=== PATIENT | female | born 1965 | race Caucasian/White ===

== ENCOUNTER 2017-10-02 16:22 | Emergency (ER) | payer MEDICAID ==
[~2017-10-02] VITALS: Ht 180.3 cm; Wt 103.4 kg
[~2017-10-02 16:22] MED LIST: CITA20TA19 PO; DIAZ10TA4 PO; HYDR-3026 PO; HYDR-548 PO; LEVO25TA2 PO; LISI-603 PO; OXCA300T PO
[2017-10-02] MEDS ORDERED: ESCITALOPRAM TAB 20MG PO (16:41)
[2017-10-02] MEDS ORDERED: LOSARTAN POT PO (16:41)
[2017-10-02] MEDS ORDERED: ATENOLOL 25 MG PO (16:41)
[2017-10-02] MEDS ORDERED: JANUVIA 100 MG PO (16:41)
[2017-10-02] MEDS ORDERED: DIAZEPAM TAB 5MG (16:41)
[2017-10-02] MEDS ORDERED: ATORVASTATIN TAB 20MG PO (16:42)
--- NOTE | 2017-10-02 17:13 | NUR ---
PT WAS EVALUATED BY DR SALINAS. PT WAS D/C TO HOME. D/C INSTRUCTIONS GIVEN TO THE PT.
[2017-10-02 17:16] VITALS: BP 136/88
== END 2017-10-02 17:23 | disposition home or self-care (01) ==
LOC: ER 16:25
DX: Z76.0 Encounter for issue of repeat prescription (principal); I10 Essential (primary) hypertension; E03.9 Hypothyroidism, unspecified; Z79.899 Other long term (current) drug therapy; Z79.891 Long term (current) use of opiate analgesic
CPT/HCPCS: 99283; A4663

== ENCOUNTER 2018-03-05 16:06 | Emergency (ER) | payer MEDICAID ==
[~2018-03-05] VITALS: Ht 180.3 cm; Wt 97.1 kg
[~2018-03-05 16:06] MED LIST changes: +ATENOLOL 25 MG PO; +ATORVASTATIN TAB 20MG PO; -CITA20TA19 PO; +DIAZEPAM TAB 5MG; +ESCITALOPRAM TAB 20MG PO; -HYDR-3026 PO; +HYDR-4354 PO; -HYDR-548 PO; +JANUVIA 100 MG PO; -LISI-603 PO; +LOSARTAN POT PO; -OXCA300T PO
--- NOTE | 2018-03-05 17:25 | NUR ---
PATIENT WAS SEEN BY . HÉCTOR, RX (INCLUDING PRECAUTIONS) AND FOLLOW UP INSTRUCTIONS GIVEN AND EXPLAINED TO PATIENT WHO STATES SHE UNDERSTANDS ALL INSTRUCTIONS... PATIENT STATES SHE DOES NOT DRIVE AND UNDERSTANDS ALL RISKS OF XANAX AND NORCO.
== END 2018-03-05 17:26 | disposition home or self-care (01) ==
LOC: ER 16:08
DX: E11.40 Type 2 diabetes mellitus with diabetic neuropathy, unspecified (principal); F41.9 Anxiety disorder, unspecified; I10 Essential (primary) hypertension; E03.9 Hypothyroidism, unspecified
CPT/HCPCS: A4663

== ENCOUNTER 2018-07-25 18:15 | Emergency (ER) | payer MEDICAID ==
[~2018-07-25] VITALS: Ht 180.3 cm; Wt 98.0 kg
[~2018-07-25 18:15] MED LIST changes: -ATORVASTATIN TAB 20MG PO; -DIAZEPAM TAB 5MG
[2018-07-25 18:41] LABS: *BILIRUBIN,URIN NEGATIVE (NEGATIVE); *BLOOD, URINE NEGATIVE (NEGATIVE); *CLARITY,URINE CLEAR (CLEAR); *COLOR,URINE YELLOW (YELLOW); *KETONES,URINE NEGATIVE (NEGATIVE); *UROBILINOGEN,URINE 0.2 E.U./dl (NORMAL); LEUKOCYTE ESTERASE ,URINE 1+ (NEGATIVE); NITRITE, URINE NEGATIVE (NEGATIVE); UGLUCOSE NEGATIVE (NEGATIVE)
[2018-07-25 18:42] LABS: *URINE HCG, QUAL NEGATIVE (NEGATIVE)
[2018-07-25 18:45] LABS: RBC,URINE NONE SEEN /HPF (0-3); SQUAMOUS EPITHELIAL CELL,UR FEW /HPF (NONE SEEN)
[2018-07-25 18:46] LABS: BACTERIA,URINE MODERATE /HPF (NONE SEEN)
--- NOTE | 2018-07-25 19:37 | NUR ---
Patient discharged to home in stable conditon. Written and verbal after care instructions given. Patient verbalizes understanding of instructions. Patient ambulated with stable gait.
[2018-07-25 19:41] VITALS: BP 138/78
== END 2018-07-25 19:41 | disposition home or self-care (01) ==
LOC: ER 18:15
DX: E11.40 Type 2 diabetes mellitus with diabetic neuropathy, unspecified (principal); M54.5 Low back pain; R30.0 Dysuria; I10 Essential (primary) hypertension; E03.9 Hypothyroidism, unspecified; Z79.899 Other long term (current) drug therapy
CPT/HCPCS: 84703; 87077; 87086; A4663

== ENCOUNTER 2018-12-13 15:10 | Emergency (ER) | payer MEDICAID ==
[~2018-12-13] VITALS: Ht 180.3 cm; Wt 99.8 kg
[~2018-12-13 15:10] MED LIST changes: -DIAZ10TA4 PO; -HYDR-4354 PO
[2018-12-13] MEDS ORDERED: LORA-259 PO (16:07)
[2018-12-13] MEDS ORDERED: ATOR20TA PO (16:07)
[2018-12-13] MEDS ORDERED: ESCI20TA PO (16:07)
[2018-12-13] MEDS ORDERED: TDAP DIPH,PERTUSS,TET VAC/PF 0.5 ML DISP.SYRIN IM ONE (17:11)
[2018-12-13] MEDS: TDAP DIPH,PERTUSS,TET VAC/PF 0.5 ML DISP.SYRIN IM ONE (17:12)
[2018-12-13 18:05] VITALS: BP 111/60
--- NOTE | 2018-12-13 18:05 | NUR ---
Patient discharged to home in stable conditon. Written and verbal after care instructions given. Patient verbalizes understanding of instructions.pt walks i nsteady gait. no sign of distress.
== END 2018-12-13 18:07 | disposition home or self-care (01) ==
LOC: ER 15:10
DX: S83.91XA Sprain of unspecified site of right knee, initial encounter (principal); M25.511 Pain in right shoulder; M79.601 Pain in right arm; M54.5 Low back pain; R51 Headache; R42 Dizziness and giddiness; I10 Essential (primary) hypertension; E11.9 Type 2 diabetes mellitus without complications; E03.9 Hypothyroidism, unspecified; F41.9 Anxiety disorder, unspecified; E78.00 Pure hypercholesterolemia, unspecified; Z79.899 Other long term (current) drug therapy; W01.0XXA Fall on same level from slipping, tripping and stumbling without subsequent striking against object, initial encounter; Y93.89 Activity, other specified; Y92.89 Other specified places as the place of occurrence of the external cause; Y99.8 Other external cause status
CPT/HCPCS: 90715; 93005; A4663

== ENCOUNTER 2018-12-22 17:11 | Emergency (ER) | payer MEDICAID ==
[~2018-12-22] VITALS: Ht 177.8 cm; Wt 99.8 kg
[~2018-12-22 17:11] MED LIST changes: +ATOR20TA PO; +ESCI20TA PO; -ESCITALOPRAM TAB 20MG PO; +LORA-259 PO
--- NOTE | 2018-12-22 18:02 | NUR ---
Patient discharged to home in stable conditon. Written and verbal after care instructions given. Patient verbalizes understanding of instructions.
== END 2018-12-22 18:04 | disposition home or self-care (01) ==
LOC: ER 17:12
DX: F41.9 Anxiety disorder, unspecified (principal); I10 Essential (primary) hypertension; E11.9 Type 2 diabetes mellitus without complications; F31.9 Bipolar disorder, unspecified; E03.9 Hypothyroidism, unspecified; E78.00 Pure hypercholesterolemia, unspecified; Z79.899 Other long term (current) drug therapy
CPT/HCPCS: A4663

== ENCOUNTER 2019-01-02 10:44 | Emergency (ER) | payer MEDICAID ==
[~2019-01-02] VITALS: Ht 180.3 cm; Wt 99.8 kg
[2019-01-02] MEDS: SULFAMETH/TRIMETH 800/160 MG TABLET PO ONE (11:20)
[2019-01-02] MEDS ORDERED: SULFAMETH/TRIMETH 800/160 MG TABLET ONE (11:23)
--- NOTE | 2019-01-02 11:24 | NUR ---
Patient discharged to home in stable conditon. Written and verbal after care instructions given. Patient verbalizes understanding of instructions.
== END 2019-01-02 11:26 | disposition home or self-care (01) ==
LOC: ER 10:45
DX: S40.861A Insect bite (nonvenomous) of right upper arm, initial encounter (principal); L08.9 Local infection of the skin and subcutaneous tissue, unspecified; L03.113 Cellulitis of right upper limb; I10 Essential (primary) hypertension; E11.9 Type 2 diabetes mellitus without complications; F41.9 Anxiety disorder, unspecified; F31.9 Bipolar disorder, unspecified; E03.9 Hypothyroidism, unspecified; E78.00 Pure hypercholesterolemia, unspecified; Z79.899 Other long term (current) drug therapy; W57.XXXA Bitten or stung by nonvenomous insect and other nonvenomous arthropods, initial encounter; Y93.89 Activity, other specified; Y92.89 Other specified places as the place of occurrence of the external cause; Y99.8 Other external cause status
CPT/HCPCS: A4663

== ENCOUNTER 2019-03-05 22:03 | Emergency (ER) | payer MEDICAID ==
[~2019-03-05] VITALS: Ht 185.4 cm; Wt 98.4 kg
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
--- NOTE | 2019-03-05 22:16 | NUR ---
PT ABLE TO TOLERATE 60ML OF JUICE
[2019-03-05] MEDS ORDERED: LORAZEPAM 0.5 MG TABLET ONE (22:39)
[2019-03-05] MEDS: LORAZEPAM 0.5 MG TABLET PO ONE (22:43)
[2019-03-05 22:50] LABS: WHITE BLOOD COUNT (AUTO) 12.3 K/UL (4.0-11.2)
[2019-03-05 22:51] LABS: HEMATOCRIT 42.2 % (37-47); HEMOGLOBIN 14.1 G/DL (12.0-16.0); MEAN CORPUSCULAR HEMOGLOBIN 30.6 UUG (27.0-31.0); MEAN CORPUSCULAR HGB CONC 33 g/dL (32.0-37.0); MEAN CORPUSCULAR VOLUME 91.9 FL (81.0-99.0); NEUTROPHILS % (AUTO) 49.3 % (38.5-71.5); PLATELET COUNT (AUTO) 254 K/UL (150-450)
[2019-03-05 22:52] LABS: MONOCYTES % (AUTO) 5.1 % (0.0-11.0)
[2019-03-05 22:53] LABS: BASOPHILS # (AUTO) 0.1 K/uL (0.0-8.0); BASOPHILS % (AUTO) 0.6 % (0.0-2.0); EOSINOPHILS # (AUTO) 0.1 K/uL (0.0-0.7); LYMPHOCYTES # (AUTO) 5.4 K/UL (0.8-4.8); MONOCYTES # (AUTO) 0.6 K/UL (0.1-1.30)
[2019-03-05 23:18] LABS: POTASSIUM 3.1 mmol/L (3.5-5.1)
[2019-03-05 23:19] LABS: BILIRUBIN,TOTAL 0.6 mg/dL (0.1-1.0); CARBON DIOXIDE 27 mmol/L (21-32); CHLORIDE 103 mmol/L (98-107); CREATININE 1.2 mg/dL (0.6-1.3); GLUCOSE 145 mg/dL (74-106); UREA NITROGEN, BLOOD 16 mg/dL (7-20)
[2019-03-05 23:20] LABS: ACETAMINOPHEN < 2.0 ug/mL (10-30); ALANINE AMINOTRANSFERASE 20 U/L (14-59); ALKALINE PHOSPHATASE 77 U/L (50-136); ASPARTATE AMINOTRANSFERASE 15 U/L (15-37); BILIRUBIN,DIRECT 0.1 mg/dL (0.0-0.2); THYROID STIMULATING HORMONE 3.648 mIU/mL (0.358-3.740); TOTAL PROTEIN, SERUM 7.9 g/dL (6.4-8.2)
[2019-03-05 23:25] LABS: ETHANOL < 3 MG/DL (0-0)
--- NOTE | 2019-03-05 23:35 | NUR ---
PT ABLE TO PROVIDE URINE. KEPT CALM ,AND COMFORTABLE ASLEEP BUT EASILY ROUSED NAD
[2019-03-06 00:12] LABS: *CLARITY,URINE HAZY (CLEAR); *COLOR,URINE STRAW (YELLOW); PH,URINE 5.5 (5.0-8.0)
[2019-03-06 00:13] LABS: *BILIRUBIN,URIN M (NEGATIVE); *BLOOD, URINE NEGATIVE (NEGATIVE); *KETONES,URINE NEGATIVE (NEGATIVE); *URINE HCG, QUAL NEGATIVE (NEGATIVE); *UROBILINOGEN,URINE 0.2 E.U./dl (NORMAL); LEUKOCYTE ESTERASE ,URINE 1+ (NEGATIVE); NITRITE, URINE NEGATIVE (NEGATIVE); UGLUCOSE NEGATIVE (NEGATIVE)
[2019-03-06 00:21] LABS: BACTERIA,URINE FEW /HPF (NONE SEEN); RBC,URINE 0-3 /HPF (0-3)
[2019-03-06 00:22] LABS: SQUAMOUS EPITHELIAL CELL,UR MODERATE /HPF (NONE SEEN)
[2019-03-06 00:53] LABS: *AMPHETAMINE, URINE POSITIVE (NEGATIVE); *BARBITURATE, URINE NEGATIVE (NEGATIVE); *CANNABINOID, URINE NEGATIVE (NEGATIVE); *COCCAINE, URINE NEGATIVE (NEGATIVE); *OPIATE, URINE NEGATIVE (NEGATIVE); *PHENCYCLIDINE SCREEN,URINE NEGATIVE (NEGATIVE)
--- NOTE | 2019-03-06 00:56 | NUR ---
[facility] (UBALDO) [phone] CALLED. PT STATES SHE AGREES WITH VOLUNTARY ADMISSION TO [facility] [phone]
--- NOTE | 2019-03-06 01:03 | NUR ---
[facility] ON THE PHONE (JOHNNIE) CALL BACK NUMBER [phone] FAX NUMBER [phone] JOHNNIE STATES: THERE ARE NO AVAILABLE BEDS AT THIS TIME. PLEASE CALL BACK AT 7A FOR WARM HAND OFF AND TO SEE IF THERE ARE ANY BEDS AVAILABLE. PLEASE FAX PT CLINICALS AT 0830A POSSIBLE BED OPENINGS AT 9A/10A ERMD AWARE PT ASLEEP, BUT EASILY ROUSED NAD MONITORED ACCORDINGLY
--- NOTE | 2019-03-06 06:05 | NUR ---
PT ASLEEP BUT EASILY ROUSED MONITORED ACCORDINGLY STILL PENDING BED AVAILABILITY FROM [facility]
--- NOTE | 2019-03-06 06:40 | NUR ---
PT ABLE TO AMBULATE TOWARDS RESTROOM ASKED FOR PHONE Addendum: 03/06/19 at 0643 by LAMONT 1ON1 SITTER AT BEDSIDE CURRENTLY STATES FEELING HELPLESS AND STILL WITH SI BUT WITHOUT PLAN STILL WAITIING FOR BED AVAILABILITY FOR VOLUNTARY ADMISSION TO [facility]
--- NOTE | 2019-03-06 06:59 | NUR ---
HAND OFF AND SBAR GIVEN TO INCOMING DAY SHIFT RN (JAIMEI) FAXED CLINICALS TO [facility] CALLED AND ENDORSED. PENDING CALL BACK AT 0900 FOR BED AVAILABILITY PT NAD, ASLEEP BUT EASILY ROUSED ORDERED BREAKFAST MONITORED ACCORDINGLY
[2019-03-06] MEDS ORDERED: ATOR40TA PO (07:09)
[2019-03-06] MEDS ORDERED: LEVO50TA8 PO (07:09)
[2019-03-06] MEDS ORDERED: LOSA100T31 PO (07:09)
[2019-03-06] MEDS ORDERED: GABA-534 PO (07:09)
[2019-03-06] MEDS ORDERED: ESCI20TA37 PO (07:09)
[2019-03-06] MEDS ORDERED: SITA100T PO (07:09)
[2019-03-06] MEDS ORDERED: ATEN25TA PO (07:09)
--- NOTE | 2019-03-06 07:14 | NUR ---
PT TOOK OWN ROUTINE AM MEDS, HANDED TO HER FROM OWN BOTTL. PER MD CASTRO.
--- NOTE | 2019-03-06 07:30 | NUR ---
unable to fax the requestd clinical, hospital fax system down at this point
--- NOTE | 2019-03-06 08:00 | NUR ---
HOSSEIN GONG PROVIDED FOR PT.
--- NOTE | 2019-03-06 09:30 | NUR ---
called [facility] manager [facility] for pt placement.
--- NOTE | 2019-03-06 10:00 | NUR ---
called [facility] intake multiple times. yuliya acevedo, no response. Addendum: 03/06/19 at 1202 by JESSICA TROY, MARKETING [employer] OP AWARE.
--- NOTE | 2019-03-06 10:30 | NUR ---
was able to talk to [facility]. no bed avaialble at this time per intake.
--- NOTE | 2019-03-06 11:25 | NUR ---
Called [facility]. ([phone]) to check for available beds. Spoke with Lachelle who stated they can not accept the patient due to the type patient's insurance coverage.
--- NOTE | 2019-03-06 12:07 | NUR ---
LUNCH TRAY PROVIDED FOR PT.
--- NOTE | 2019-03-06 14:18 | NUR ---
hospital fax system still down. nsg diamond finishing supervisor and social work administrator aware. jon social work administrator, also working on pt case.
--- NOTE | 2019-03-06 14:30 | NUR ---
[id number], notified
--- NOTE | 2019-03-06 15:00 | NUR ---
asked the intake at [facility] to fax the requested clinical to [facility].
--- NOTE | 2019-03-06 15:33 | NUR ---
called [facility] again for bed availability. cj, the intake working on it.
--- NOTE | 2019-03-06 15:44 | NUR ---
cande from [facility] tried to fax the requested clinical, unable, busy ring tone.
--- NOTE | 2019-03-06 15:47 | NUR ---
THE REQUESTED CLINICAL AND FACE SHEET FAX COMPLETED.
--- NOTE | 2019-03-06 17:08 | NUR ---
HOSPITAL DINNER TRAY PROVIDED FOR PT.
--- NOTE | 2019-03-06 17:11 | NUR ---
ONDINA PICHARDO CALLING RENE BECK REGARDING THE PT CASE.
--- NOTE | 2019-03-06 17:28 | NUR ---
CALLED BOY AT [facility], AT [phone] PER RENE BECK REQUEST. BOY WILL CALL BACK WITH INFO ON PT ADMISSION STATUS.
--- NOTE | 2019-03-06 17:34 | NUR ---
BOY CALLED BACK AND SAID THAT HE DID NOT RECIEVE THE FAX DUE TO THEIR FAX PROBLEM TODAY. REFAXED THE INFO AT [phone] PER BOY REQUEST.
[2019-03-06] MEDS ORDERED: LORAZEPAM 1 MG TABLET ONE (18:49)
[2019-03-06] MEDS: LORAZEPAM 0.5 MG TABLET PO ONE (18:59)
--- NOTE | 2019-03-06 19:08 | NUR ---
Received call from Consuelo from [facility] intake requesting face sheet to be faxed to [phone]
--- NOTE | 2019-03-06 19:27 | NUR ---
Called [facility] for update, states they received pt's info (clinicals & face sheet) and still under review. Will call back when bed available.
--- NOTE | 2019-03-06 20:01 | NUR ---
Pt resting in bed comfortably. Pt ate dinner already. Eating snacks now. Pending available bed at [facility]
--- NOTE | 2019-03-06 20:11 | NUR ---
Received call from Atiya Grajeda regarding update on pt case. No call back yet from [facility].
[2019-03-06] MEDS ORDERED: HYDROCODONE/APAP 10-325 MG TABLET ONE (20:44)
[2019-03-06] MEDS: HYDROCODONE/APAP 10-325 MG TABLET PO ONE (20:45)
--- NOTE | 2019-03-06 20:52 | NUR ---
Called [facility] regarding update, pt states pt has [employer] and will not be able to accept pt. Informed Atiya Grajeda & she states will call Jigar Haywood LCSW.
--- NOTE | 2019-03-06 21:08 | NUR ---
Spoke with Jigar (psych assistant store manager operations) states he will be here for reevaluation at [phone]
--- NOTE | 2019-03-06 21:38 | NUR ---
Jigar Haywood LCSW, at bedside to evaluate patient.
--- NOTE | 2019-03-06 22:18 | NUR ---
Pt is medically cleared. Pt has been evaluated by Jigar Haywood. Pt is cleared by PET team. Pt is not on a hold.
--- NOTE | 2019-03-06 22:19 | NUR ---
Patient given written and verbal discharge instructions. Patient verbalizes understanding of instructions. Patient is ambulatory with steady gait. Refuses offer of long-term placement. Patient given list of available shelters in surrounding area. Pt wants to leave, states she will stay with her son & has work in the morning. Pt given sandwich and juice. No acute distress noted.
== END 2019-03-06 22:26 | disposition home or self-care (01) ==
LOC: ER 22:03
DX: Z04.6 Encounter for general psychiatric examination, requested by authority (principal); R45.851 Suicidal ideations; F41.9 Anxiety disorder, unspecified; F31.9 Bipolar disorder, unspecified; I10 Essential (primary) hypertension; E11.9 Type 2 diabetes mellitus without complications; E78.5 Hyperlipidemia, unspecified; Z79.899 Other long term (current) drug therapy; Z59.0 Homelessness
CPT/HCPCS: 36415; 80048; 80076; 80307; 81000; 81001; 84443; 84703; 85025; 87077; 87086; 87186; 99285; G0480 ×2; G0481; A4663

== ENCOUNTER 2020-06-05 10:41 | Emergency (ER) | payer MEDICAID ==
[~2020-06-05] VITALS: Ht 180.3 cm; Wt 99.8 kg
[~2020-06-05 10:41] MED LIST changes: +ATEN25TA PO; +ATOR40TA PO; +ESCI20TA44 PO; +GABA-534 PO; +LEVO50TA8 PO; +LOSA100T31 PO; +SITA100T PO
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
[2020-06-05 11:01] LABS: BASOPHILS # (AUTO) 0.1 K/uL (0.0-8.0); BASOPHILS % (AUTO) 0.7 % (0.0-2.0); EOSINOPHILS # (AUTO) 0.4 K/uL (0.0-0.7); EOSINOPHILS % (AUTO) 3.5 % (0.0-7.0); HEMATOCRIT 42.5 % (31.2-41.9); HEMOGLOBIN 14.4 g/dL (10.9-14.3); LYMPHOCYTES # (AUTO) 3.6 K/uL (20.0-40.0); LYMPHOCYTES % (AUTO) 33.8 % (20.5-51.5); MEAN CORPUSCULAR HEMOGLOBIN 30.3 uug (24.7-32.8); MEAN CORPUSCULAR HGB CONC 34 g/dL (32.3-35.6); MEAN CORPUSCULAR VOLUME 89.5 fL (75.5-95.3); MONOCYTES # (AUTO) 0.8 K/uL (2.0-10.0); MONOCYTES % (AUTO) 7.4 % (0.0-11.0); NEUTROPHILS # (AUTO) 5.9 K/uL (1.8-8.9); NEUTROPHILS % (AUTO) 54.6 % (38.5-71.5); PLATELET COUNT (AUTO) 310 K/uL (179-408); RED BLOOD CELL COUNT(AUTO) 4.74 MIL/uL (3.63-4.92); WHITE BLOOD COUNT (AUTO) 10.8 K/uL (3.8-11.8)
[2020-06-05 11:07] LABS: CARBON DIOXIDE 26 mmol/L (21-32); CHLORIDE 103 mmol/L (98-107); CREATININE 0.9 mg/dL (0.6-1.3); GLUCOSE 153 mg/dL (74-106); POTASSIUM 3.7 mmol/L (3.5-5.1); UREA NITROGEN, BLOOD 11 mg/dL (7-18)
--- NOTE | 2020-06-05 11:10 | NUR ---
PT AGREES TO GO TO [facility], CALLED JASON WELFARE CASE WORKER AND LEFT A MESSAGE.
[2020-06-05 11:11] LABS: ETHANOL < 3 MG/DL (0-0)
[2020-06-05 11:12] LABS: ALANINE AMINOTRANSFERASE 34 U/L (14-59); ALKALINE PHOSPHATASE 57 U/L (50-136); ASPARTATE AMINOTRANSFERASE 20 U/L (15-37); BILIRUBIN,DIRECT 0.2 mg/dL (0.0-0.2); BILIRUBIN,TOTAL 0.7 mg/dL (0.2-1.0)
[2020-06-05 11:13] LABS: ACETAMINOPHEN < 2.0 ug/mL (10-30)
[2020-06-05] MEDS ORDERED: LORAZEPAM 0.5 MG TABLET PO ONE (11:45)
--- NOTE | 2020-06-05 12:10 | NUR ---
PT IS REQUESTING TO BE D/[facility]. PT SAYS THAT HER FRIEND WILL HELP HER. ONDINA PICHARDO NOTIFIED.
[2020-06-05] MEDS ORDERED: LORAZEPAM 1 MG TABLET ONE (12:15)
--- NOTE | 2020-06-05 12:15 | NUR ---
CHECKED ON THE PT, PT REQUESTING HER STUDIO GRIP, PROVIDED FOR PT.
--- NOTE | 2020-06-05 12:21 | NUR ---
CALLED [facility] FOR [facility] PER ER MD REQUEST. ETA ONE HOUR
--- NOTE | 2020-06-05 12:29 | NUR ---
ubaldo Grajeda at bedside.
--- NOTE | 2020-06-05 12:35 | NUR ---
JONATHAN GONG PROVIDED FOR PT.
--- NOTE | 2020-06-05 13:10 | NUR ---
pt walks out of room and says that her boy friend is here and wants to go with him, explained to the pt because of the fact that the pt came with lapd for si, we have to evaluate her. pt said, " I was never suicidal, I already told everyone including the lapd that I am not suicidal."
--- NOTE | 2020-06-05 13:21 | NUR ---
called for [facility]ton em. pt became very frustrated and angry about the fact that milton em was called, although I explained to the pt earlier that she cannot leave the hospital before being evaluated.
--- NOTE | 2020-06-05 13:23 | NUR ---
mary villarreal oked the pt to leave.
--- NOTE | 2020-06-05 13:25 | NUR ---
pt walked out of er in steady gait. pt again denies suicidal ideation, or any harm to self.
--- NOTE | 2020-06-05 13:26 | NUR ---
isra davidson. aware.
--- NOTE | 2020-06-05 13:29 | NUR ---
Note romeoone in [facility] - 06/05/20 at 1336 by JOSE GSO Rogers Ervin AT BEDSIDE TO TALK TO THE PT. Addendum: 06/05/20 at 1332 by JOSE GSO Amendment devin in [facility] - 06/05/20 at 1336 by SPOURMANSO CORRECTION ON TIME, [id number]
--- NOTE | 2020-06-05 15:30 | NUR ---
12:20pm: This SW called and spoke with ED RN Jessica regarding foster care social worker consultation. Jeraldi informed this SW that assessment clinician has been called, awaiting arrival. This SW will await assessment clinician evaluation, and will follow-up as needed to coordinate care.
== END 2020-06-05 13:44 | disposition left against medical advice (07) ==
LOC: ER 10:41
DX: F31.9 Bipolar disorder, unspecified (principal); F43.21 Adjustment disorder with depressed mood; I10 Essential (primary) hypertension; R45.851 Suicidal ideations; E03.9 Hypothyroidism, unspecified; E78.00 Pure hypercholesterolemia, unspecified; Z59.0 Homelessness; Z79.890 Hormone replacement therapy; Z79.899 Other long term (current) drug therapy; E11.9 Type 2 diabetes mellitus without complications; Z79.84 Long term (current) use of oral hypoglycemic drugs; Z85.850 Personal history of malignant neoplasm of thyroid; Z20.822 Contact with and (suspected) exposure to COVID-19; I45.10 Unspecified right bundle-branch block; R94.31 Abnormal electrocardiogram [ECG] [EKG]
CPT/HCPCS: 36415; 70030-TC; 85025; 93005; A4663; G0480

== ENCOUNTER 2021-02-23 04:47 | Emergency (ER) | payer MEDICAID ==
[~2021-02-23] VITALS: Ht 180.3 cm; Wt 96.6 kg
[~2021-02-23 04:47] MED LIST changes: -ATEN25TA PO; -ATENOLOL 25 MG PO; -ATOR20TA PO; -ATOR40TA PO; -ESCI20TA44 PO; -JANUVIA 100 MG PO; -LEVO50TA8 PO; -LOSARTAN POT PO
--- NOTE | 2021-02-23 06:42 | NUR ---
Dr. Bowie at bedside for MSE.
[2021-02-23] MEDS ORDERED: SITA100T PO (06:56)
[2021-02-23] MEDS ORDERED: LOSA100T31 PO (06:56)
[2021-02-23] MEDS ORDERED: ATEN25TA PO (06:56)
[2021-02-23] MEDS ORDERED: LEVO50TA8 PO (06:56)
--- NOTE | 2021-02-23 07:05 | NUR ---
Patient given written and verbal discharge instructions. Patient verbalizes understanding of instructions. Patient is ambulatory with steady gait. Refuses offer of alf placement. Patient given list of available shelters in surrounding area. Patient provided food and water per patient request, refused all other services at this time, clothing is adequate, VSS, all belongings taken, no acute signs of distress.
[2021-02-23 07:07] VITALS: BP 131/85
== END 2021-02-23 07:07 | disposition home or self-care (01) ==
LOC: ER 04:49
DX: I10 Essential (primary) hypertension (principal); E11.40 Type 2 diabetes mellitus with diabetic neuropathy, unspecified; Z76.0 Encounter for issue of repeat prescription; F32.A Depression, unspecified; G89.29 Other chronic pain; E03.9 Hypothyroidism, unspecified; Z59.01 Sheltered homelessness; Z79.84 Long term (current) use of oral hypoglycemic drugs; Z79.890 Hormone replacement therapy
CPT/HCPCS: A4663

== ENCOUNTER 2021-06-02 10:32 | Emergency (ER) | payer MEDICAID ==
[~2021-06-02] VITALS: Ht 180.3 cm; Wt 88.5 kg
[~2021-06-02 10:32] MED LIST changes: +ATEN25TA PO; +LEVO50TA8 PO
--- NOTE | 2021-06-02 10:54 | NUR ---
co=[id number]
[2021-06-02 11:35] LABS: HEMATOCRIT 39.9 % (31.2-41.9); MEAN CORPUSCULAR HEMOGLOBIN 30.7 uug (24.7-32.8); MEAN CORPUSCULAR VOLUME 88.5 fL (75.5-95.3); PLATELET COUNT (AUTO) 286 K/uL (179-408)
[2021-06-02 11:44] LABS: CREATININE 1.1 mg/dL (0.6-1.3); POTASSIUM 3.2 mmol/L (3.5-5.1)
[2021-06-02 11:57] LABS: BILIRUBIN,DIRECT 0.1 mg/dL (0.0-0.2); BILIRUBIN,TOTAL 0.7 mg/dL (0.2-1.0); TOTAL PROTEIN, SERUM 7.5 g/dL (6.4-8.2)
[2021-06-02 12:00] LABS: ETHANOL < 3 MG/DL (0-0)
[2021-06-02 12:08] LABS: ACETAMINOPHEN < 2.0 ug/mL (10-30)
[2021-06-02] MEDS ORDERED: IBUPROFEN 800 MG TABLET PO ONE (12:30)
[2021-06-02] MEDS ORDERED: IBUPROFEN 800 MG TABLET ONE (12:44)
[2021-06-02 12:47] LABS: *BILIRUBIN,URIN NEGATIVE (NEGATIVE); *BLOOD, URINE NEGATIVE (NEGATIVE); *CLARITY,URINE CLEAR (CLEAR); *COLOR,URINE YELLOW (YELLOW); *KETONES,URINE NEGATIVE (NEGATIVE); *UROBILINOGEN,URINE 0.2 E.U./dl (NORMAL); LEUKOCYTE ESTERASE ,URINE 2+ (NEGATIVE); NITRITE, URINE NEGATIVE (NEGATIVE); UGLUCOSE NEGATIVE (NEGATIVE)
[2021-06-02 12:55] LABS: *AMPHETAMINE, URINE NEGATIVE (NEGATIVE); *CANNABINOID, URINE NEGATIVE (NEGATIVE); *COCCAINE, URINE NEGATIVE (NEGATIVE); *OPIATE, URINE NEGATIVE (NEGATIVE); *PHENCYCLIDINE SCREEN,URINE NEGATIVE (NEGATIVE)
--- NOTE | 2021-06-02 12:55 | NUR ---
psychiatric social worker supervisor at bedside.
--- NOTE | 2021-06-02 13:32 | NUR ---
Clinical Social Work Note MELINDA consult was requested for homelessness. Patient met with 56 year old female who is alert and oriented x4. Patient presents with depressed mood and congruent affect. SW discussed with patient her currently living situation. Patient stated that she is living "in the streets" and she has been working with [facility] for housing. Per patient, [facility] has been on quarantine but she is waiting for a bed there. Patient stated that she will be looking at the homeless packet provided, but she will be going to [facility] after discharge to inquire if they are still in quarantine. MELINDA provided patient with emotional support as she shared that she lost her son a year ago which has contributed to her homelessness. SW had patient sign homeless waiver.
--- NOTE | 2021-06-02 13:56 | NUR ---
Patient given written and verbal discharge instructions. Patient verbalizes understanding of instructions. Patient is ambulatory with steady gait. Refuses offer of care home placement. Patient given list of available shelters in surrounding area.
[2021-06-02 14:00] VITALS: BP 111/69
[2021-06-02 15:06] LABS: BACTERIA,URINE MODERATE /HPF (NONE SEEN); RBC,URINE 0-3 /HPF (0-3); WBC,URINE 20-50 /HPF (0-3)
[2021-06-02 15:07] LABS: SQUAMOUS EPITHELIAL CELL,UR FEW /HPF (NONE SEEN)
== END 2021-06-02 14:00 | disposition home or self-care (01) ==
LOC: ER 10:32
DX: R07.89 Other chest pain (principal); Z59.01 Sheltered homelessness; E11.40 Type 2 diabetes mellitus with diabetic neuropathy, unspecified; Z79.84 Long term (current) use of oral hypoglycemic drugs; E03.9 Hypothyroidism, unspecified; Z79.890 Hormone replacement therapy; I10 Essential (primary) hypertension; F31.9 Bipolar disorder, unspecified; F41.9 Anxiety disorder, unspecified; M25.551 Pain in right hip; Z91.81 History of falling
CPT/HCPCS: 36415; 70030-TC; 71045; 72170; 73020; 73502; 85025; 87086; 93005; A4663; G0480